=== PATIENT | male | born 1990 | race Caucasian/White ===

== ENCOUNTER 2017-07-28 11:56 | Emergency (ER) | payer SELFPAY ==
[2017-07-28 12:02] VITALS: O2SAT 96
--- NOTE | 2017-07-28 12:51 | EDPHY ---
H & P Time Seen by Provider: 07/28/17 12:11 HPI/ROS: CHIEF COMPLAINT: Right calf pain HISTORY OF PRESENT ILLNESS: The patient is a 26 y/o male who complains of right calf pain onset last night. He fell asleep on the couch last night and felt a mild pain in his right calf. However, he denies sleeping on his leg in an awkward position. The pain woke him up this morning, and he noticed his foot was cold to the touch without change in coloration. He attempted to walk, but was unable to bear much weight on his right leg because of severe right calf pain. He used a heating pad and muscle relief cream with no improvement of his symptoms. Denies numbness, tingling, recent trauma, fever or other pertinent symptoms. REVIEW OF SYSTEMS: Aside from elements discussed in the HPI, a comprehensive 10-point review of systems was reviewed and is negative. Past Medical/Surgical History: Denies Social History: Lives in [place], single, regular alcohol use. Smoking Status: Never smoked Physical Exam: General Appearance: Alert, pleasant, does not appear in pain Eyes: Pupils equal and round, no conjunctival pallor ENT, Mouth: Mucous membranes moist Neck: Normal inspection Respiratory: Lungs are clear to auscultation Cardiovascular: Regular rate and rhythm Gastrointestinal: Abdomen is soft and non-tender Neurological: A&O, nonfocal, normal gait Skin: Warm and dry, no rash Extremities: Tenderness to right calf, lower extremity pulses intact, no pedal edema Psychiatric: Mood and affect normal Constitutional: Initial Vital Signs Temperature (C) 36.6 C 07/28/17 11:57 Heart Rate 72 07/28/17 11:57 Respiratory Rate 16 07/28/17 11:57 Blood Pressure 141/89 H 07/28/17 11:57 O2 Sat (%) 96 07/28/17 11:57 O2 Delivery Mode Room Air Allergies/Adverse Reactions: No Known Allergies Allergy (Unverified 07/28/17 12:02) Home Medications: Medication Instructions Recorded Acyclovir [Zovirax 200 mg (*)] 200 mg PO 07/28/17 Amphet Asp and D/Amphet [Adderall 10 mg PO 07/28/17 10 MG (*)] Medical Decision Making - Diagnostics Imaging Results: Imaging Impressions Extremity Venous Study 07/28/17 12:11 Impression: 1. Negative. No deep venous thrombosis. 2. Grade 1/2 strain medial gastrocnemius muscle. Findings discussed with Emergency Department physician, Brenna Mathew, at 1322 hours 07/28/2017. Imaging: Discussed imaging studies w/ scallop cutter Radiologist, I viewed and interpreted images myself ED Course/Re-evaluation: The patient is a 26 y/o male who presents with tenderness to his right calf. Lower extremity pulses are intact. Spoke with radiologist, he reports the right gastrocnemius is strained but there is no DVT. 1326: Discussed the patient's right calf ultrasound results. Ibuprofen instructions given. He will remain on crutches while the pain persists. Return precautions discussed; patient is comfortable with this plan. Differential Diagnosis: Differential diagnosis includes does not limited to DVT, arterial compromise, fracture, cellulitis, hematoma. Departure - Departure Disposition: Home, Routine, Self-Care Clinical Impression: Gastrocnemius strain Qualifiers: Encounter type: initial encounter Laterality: right Qualified Code(s): S86.111A - Strain of other muscle(s) and tendon(s) of posterior muscle group at lower leg level, right leg, initial encounter Condition: Good Instructions: Muscle Strain (ED) Additional Instructions: Ibuprofen 600 mg 3 times daily while the pain persists. Referrals: Maciej Oliveira MD [Primary Care Provider] - As per Instructions Report Scribed for: Brenna Mathew Report Scribed by: Pat Winston Date of Report: 07/28/17 Time of Report: 12:44 Physician Review and Approval Statement: 07/28/17 12:44 Portions of this note were transcribed by a medical transport specialist. I personally performed a history, physical exam, medical decision making, and confirmed accuracy of information the transcribed note.
[2017-07-28 13:34] VITALS: BP 127/85; PULSE 69; RESP 17; TEMP 98.1
== END 2017-07-28 13:35 | disposition home or self-care (01) ==
DX: S86.111A Strain of other muscle(s) and tendon(s) of posterior muscle group at lower leg level, right leg, initial encounter (principal); X58.XXXA Exposure to other specified factors, initial encounter; Y99.8 Other external cause status